=== PATIENT | female | born 1955 | race Caucasian/White ===

== ENCOUNTER 2016-05-13 11:46 | Observation (INO) | payer OTHER ==
[~2016-05-13] VITALS: Ht 157.5 cm; Wt 91.1 kg
[~2016-05-13 11:46] MED LIST: NEXIUM40 MG PO
[2016-05-13 13:29] LABS: MCH 30.4 PG (29.0-34.0); MCHC 35.5 G/DL (30.0-36.0); MCV 85.7 FL (83-99); MEAN PLAT.VOLUME 9.6 uM^3 (9.5-12.4); PLATELET COUNT 326 K/uL (156-360); RBC DIS.WIDTH-CV 13.4 % (11.8-14.6); RBC DIS.WIDTH-SD 41.4 % (39-53); RED BLOOD COUNT 4.67 M/uL (3.80-5.20); WHITE BLOOD COUNT 10.7 K/uL (4.1-10.2)
[2016-05-13 13:42] LABS: CHLORIDE 103 mEq/L (99-109); POTASSIUM 3.7 mEq/L (3.7-5.4); SODIUM 138 mEq/L (136-147)
[2016-05-13 13:44] LABS: GLUCOSE 143 mg/dL (70-99)
[2016-05-13 13:45] LABS: ANION GAP 12 MEQ/L (2-14)
[2016-05-13 13:46] LABS: TOTAL BILIRUBIN 1.5 mg/dL (0.0-1.0)
[2016-05-13 13:47] LABS: ALKALINE PHOSPHATASE 79 IU/L (3-129)
[2016-05-13 13:48] LABS: GFR ESTIMATE (CALCULATED) > 59 mL/min/
[2016-05-13 13:49] LABS: UREA NITROGEN (BUN) 7 mg/dL (9-23)
[2016-05-13 14:13] LABS: LIPASE 30 U/L (1.0-51.0)
[2016-05-13 14:19] LABS: TROP-I INTERPRETATION NEGATIVE; TROPONIN-I < 0.01 ng/mL (0.0-0.30)
[2016-05-13 15:42] LABS: ADD MIUA? YES; BILIRUBIN NEGATIVE; BLOOD NEGATIVE; COLOR YELLOW ((YELLOW)); GLUCOSE (STRIP) NEGATIVE; KETONES NEGATIVE; LEUKOCYTES SMALL; NITRITE NEGATIVE; PROTEIN (STRIP) NEGATIVE; SPECIFIC GRAVITY 1.014 (1.000-1.030); UROBILINOGEN 0.2 MG/DL (0.2-1.0)
[2016-05-13 15:50] LABS: BACTERIA NONE SEEN /HPF; EPITHELIAL CELLS RARE /HPF; MUCUS TRACE /LPF; RED BLOOD CELLS 0-5 /HPF (0-5); UCUL ADDED? NO; UNCLASSIFIED CRYSTALS 1+ /HPF; WHITE BLOOD CELLS 0-5 /HPF (0-5)
[2016-05-13] MEDS ORDERED: PERCOCET 7.51 TABLET PO (18:26)
[2016-05-13] MEDS ORDERED: NEXIUM 24HR20 MG PO (18:26)
[2016-05-13] MEDS ORDERED: SYMBICORT60 INHALAT IH (18:26)
[2016-05-13] MEDS ORDERED: CYCLOBENZAPRINE10 MG PO (18:27)
[2016-05-13 20:03] VITALS: BP 143/87
[2016-05-14] VITALS: BP 136/98
[2016-05-14 01:53] LABS: POINT-OF-CARE METER ID UU13113831
[2016-05-14 07:02] LABS: ALKALINE PHOSPHATASE 69 IU/L (3-129); ANION GAP 7 MEQ/L (2-14); CHLORIDE 106 MEQ/L (99-109); GFR ESTIMATE (CALCULATED) > 59 mL/min/; POTASSIUM 3.6 MEQ/L (3.7-5.4); SAMPLE HEMOLYSIS CHECK 0; SAMPLE ICTERIC CHECK 0; SAMPLE LIPEMIA CHECK 0; SODIUM 141 MEQ/L (136-147); TOTAL BILIRUBIN 0.8 MG/DL (0.0-1.0); UREA NITROGEN (BUN) 6 mg/dL (9-23)
[2016-05-14 07:09] LABS: GLUCOSE 97 mg/dL (70-99)
[2016-05-14 07:15] LABS: EOSINOPHIL (%) 1.8 % (0-5); EOSINOPHIL COUNT 0.1 K/uL (0-0.3); HEMATOCRIT 39.9 % (36.0-46.0); IMMATURE GRANULOCYTE (%) 0.2 % (0.0-0.7); LYMPHOCYTE COUNT 2.6 K/uL (1.0-2.8); MCH 29.4 PG (29.0-34.0); MCHC 32.8 G/DL (30.0-36.0); MCV 89.5 FL (83-99); MEAN PLAT.VOLUME 9.5 uM^3 (9.5-12.4); MONOCYTE COUNT 0.3 K/uL (0-0.8); NEUTROPHIL COUNT 2.5 K/uL (1.8-6.4); PLATELET COUNT 252 K/uL (156-360); RED BLOOD COUNT 4.46 M/uL (3.80-5.20)
[2016-05-14 07:16] LABS: WHITE BLOOD COUNT 5.5 K/uL (4.1-10.2)
[2016-05-14 08:10] LABS: POINT-OF-CARE METER ID UU13113700
[2016-05-14 08:42] VITALS: BP 147/78
[2016-05-14 13:07] VITALS: BP 137/87
[2016-05-14 19:33] LABS: POINT-OF-CARE METER ID UU13113700
[2016-05-14 20:00] VITALS: BP 131/70
[2016-05-15 03:57] VITALS: BP 136/69
[2016-05-15 06:51] LABS: ALKALINE PHOSPHATASE 66 IU/L (3-129); ANION GAP 7 MEQ/L (2-14); CHLORIDE 107 MEQ/L (99-109); DIRECT BILIRUBIN 0.1 mg/dL (0.0-0.3); GFR ESTIMATE (CALCULATED) > 59 mL/min/; GLUCOSE 100 mg/dL (70-99); POTASSIUM 3.9 MEQ/L (3.7-5.4); SAMPLE HEMOLYSIS CHECK 0; SAMPLE ICTERIC CHECK 0; SAMPLE LIPEMIA CHECK 0; SODIUM 141 MEQ/L (136-147); TOTAL BILIRUBIN 0.7 MG/DL (0.0-1.0); UREA NITROGEN (BUN) 5 mg/dL (9-23)
[2016-05-15 07:20] VITALS: BP 136/91
== END 2016-05-15 11:07 | disposition home or self-care (01) ==
LOC: RME 11:46 → EME 11:46 → EDOF 19:06 → 5WEST 19:56
PROVIDERS: Hospitalist; Specialist
DX: K80.71 Calculus of gallbladder and bile duct without cholecystitis with obstruction (principal); K57.90 Diverticulosis of intestine, part unspecified, without perforation or abscess without bleeding; G89.29 Other chronic pain; M54.2 Cervicalgia; Z98.1 Arthrodesis status; F31.9 Bipolar disorder, unspecified; E66.9 Obesity, unspecified; Z68.37 Body mass index [BMI] 37.0-37.9, adult
CPT/HCPCS: 74177; 74181; 76705; 80048; 80053; 80076; 81003; 82948; 83690; 84484; 85025; 85027; 93005; 94640; 94640 76; 94760; 94799; 99281; 99285; G0378; J1200; J1644; J1885; J2270; J2405; J7030

== ENCOUNTER → 2016-06-06 | Outpatient (CLI) | payer OTHER ==
[~2016-06-06] MED LIST changes: +CYCLOBENZAPRINE10 MG PO; +NEXIUM 24HR20 MG PO; +NORCO 5/3251 TABLET PO; +PERCOCET 7.51 TABLET PO; +SYMBICORT60 INHALAT IH
== END | disposition home or self-care (01) ==
LOC: CDC 08:31
DX: R94.31 Abnormal electrocardiogram [ECG] [EKG] (principal); K80.10 Calculus of gallbladder with chronic cholecystitis without obstruction
CPT/HCPCS: 93000

== ENCOUNTER 2016-06-13 05:26 | Day surgery (SDC) | payer OTHER ==
[~2016-06-13] VITALS: Ht 157.5 cm; Wt 88.4 kg
[~2016-06-13 05:26] MED LIST changes: -NORCO 5/3251 TABLET PO
[2016-06-13 06:43] VITALS: BP 157/93
[2016-06-13 06:57] VITALS: BP 157/93
[2016-06-13] MEDS ORDERED: NORCO 5/3251 TABLET PO (09:30)
[2016-06-13 10:02] VITALS: BP 132/88
[2016-06-13 10:56] VITALS: BP 130/80
[2016-06-13 12:42] VITALS: BP 129/66
== END 2016-06-13 13:05 | disposition home or self-care (01) ==
LOC: SDC 05:26
PROC: 0FT44ZZ Resection of Gallbladder, Percutaneous Endoscopic Approach (ICD-10-PCS; principal; 2016-06-13)
DX: K80.10 Calculus of gallbladder with chronic cholecystitis without obstruction (principal); G89.29 Other chronic pain; M54.5 Low back pain; M54.2 Cervicalgia; Z68.36 Body mass index [BMI] 36.0-36.9, adult; K76.0 Fatty (change of) liver, not elsewhere classified; Q79.0 Congenital diaphragmatic hernia; Z87.891 Personal history of nicotine dependence; Z80.3 Family history of malignant neoplasm of breast
CPT/HCPCS: 88304; C1769; J0131; J0690; J1100; J1170; J1885; J2250; J2405; J2710; J2765; J3010